=== PATIENT | male | born 1965 | race African-American/Black ===

== ENCOUNTER 2018-08-12 19:32 | Emergency (ER) | payer BC, OTHER ==
[2018-08-12] MEDS ORDERED: IPRATROPIUM/ALBUTEROL 0.5-2.5 MG/3 ML AMPUL NEB ONE (19:57)
[2018-08-12] MEDS ORDERED: METHYLPREDNISOLONE INJ 125 MG/2 ML SDV IV ONE (19:57)
[2018-08-12 20:07] LABS: ABSOLUTE BASOPHILS # (AUTO) 0.1 10^3/uL (0.0-0.2); ABSOLUTE EOSINOPHILS # (AUTO) 0.2 10^3/uL (0.0-0.6); ABSOLUTE LYMPHOCYTES (AUTO) 4.1 10^3/uL (0.5-4.7); ABSOLUTE MONOCYTES (AUTO) 1.5 10^3/uL (0.1-1.4); ABSOLUTE NEUT (AUTO) 9.3 10^3/uL (1.7-8.2); BASOPHILS % (AUTO) 0.9 % (0-2); EOSINOPHILS % (AUTO) 1.2 % (0-6); HEMATOCRIT 38.7 % (37.9-51.0); HEMOGLOBIN 12.9 g/dL (13.5-17.0); LYMPHOCYTES % (AUTO) 26.8 % (13-45); MEAN CORPUSCULAR HEMOGLOBIN 29.4 pg (27.0-33.4); MEAN CORPUSCULAR HGB CONC 33.3 g/dL (32.0-36.0); MEAN CORPUSCULAR VOLUME 88 fl (80-97); MONOCYTES % (AUTO) 9.7 % (3-13); PLATELET COUNT 368 10^3/uL (150-450); RED BLOOD COUNT 4.38 10^6/uL (4.35-5.55); RED CELL DISTRIBUTION WIDTH 14.9 % (11.5-14.0); SEGMENTED NEUTROPHILS % (AUTO) 61.4 % (42-78); TOTAL CELLS COUNTED % (AUTO) 100 %; WHITE BLOOD COUNT 15.2 10^3/uL (4.0-10.5)
[2018-08-12 20:13] LABS: ALANINE AMINOTRANSFERASE 22 U/L (21-72); ALBUMIN 4.3 g/dL (3.5-5.0); ALKALINE PHOSPHATASE 65 U/L (38-126); ANION GAP 12 (5-19); ASPARTATE AMINO TRANSFERASE 16 U/L (17-59); BILIRUBIN,DIRECT 0.3 mg/dL (0.0-0.4); BILIRUBIN,TOTAL 0.3 mg/dL (0.2-1.3); BLOOD UREA NITROGEN 18 mg/dL (7-20); CALCIUM 9.5 mg/dL (8.4-10.2); CARBON DIOXIDE 25 mmol/L (22-30); CHLORIDE 107 mmol/L (98-107); GLUCOSE 111 mg/dL (75-110); POTASSIUM 3.7 mmol/L (3.6-5.0); SODIUM 143.5 mmol/L (137-145); TOTAL PROTEIN 7.9 g/dL (6.3-8.2)
[2018-08-12 20:26] LABS: NT PRO BNP 115 pg/mL (5-900)
[2018-08-12 20:27] LABS: TROPONIN I < 0.012 ng/mL
--- NOTE | 2018-08-12 20:42 | RADIOLOGY REPORT (SQ) ---
EXAM DESCRIPTION: CHEST 2 VIEWS COMPLETED DATE/TIME: 08/12/2018 8:26 pm REASON FOR STUDY: Shortness of breath COMPARISON: None. EXAM PARAMETERS: NUMBER OF VIEWS: two views TECHNIQUE: Digital Frontal and Lateral radiographic views of the chest acquired. RADIATION DOSE: NA LIMITATIONS: none FINDINGS: LUNGS AND PLEURA: No opacities, masses or pneumothorax. No pleural effusion. MEDIASTINUM AND HILAR STRUCTURES: No masses or contour abnormalities. HEART AND VASCULAR STRUCTURES: Heart size is borderline. There is no pulmonary edema. BONES: No acute findings. HARDWARE: None in the chest. OTHER: No other significant finding. IMPRESSION: Borderline cardiomegaly without CHF. TECHNICAL DOCUMENTATION: JOB ID: [id number] [employer]- All Rights Reserved Reading location - IP/workstation name: [email or web address]
--- NOTE | 2018-08-12 22:11 | ER Document Report ---
ED Respiratory Problem - General Chief Complaint: Shortness Of Breath Stated Complaint: SHORTNESS OF BREATH Time Seen by Provider: 08/12/18 19:49 Mode of Arrival: Ambulatory Information source: Patient Notes: Patient is a 53-year-old black male comes emergency room complaining of increasing shortness of breath. Patient states she was seen approximately 2 weeks ago for similar incident and he is from [place] was told that he either has asthma or some type of an allergic problem and he was supposed to follow-up with a sewing machine adjuster this past week, he instead came down from [place] to work at the [email or web address]. He got overheated today became more short of breath. He attempted to use his inhaler without any relief. Denies any chest pain or shortness of breath. He also has a productive whitish cough. TRAVEL OUTSIDE OF THE [place] IN LAST 30 DAYS: No - HPI Patient complains to provider of: Cough, Short of breath. No: Asthma, Chest pain, CHF, COPD Onset: This afternoon Duration: Continuous Initiating Event: Other - Unknown Quality of pain: No pain Severity: Moderate Pain Level: 3 Context: denies: Hx asthma, Hx CHF, Malignancy, Recent cardiac event, Recent foreign travel, Recent long distance trvl, Recent immobilization Short of Breath: Moderate Chest pain/discomfort: Constant, Worse with deep breaths. denies: Heaviness, Left, Pain, Radiates to arm, Radiates to back, Radiates to jaw Cough: Productive Sputum amount: Small Sputum color: White Sputum consistency: Thin At home treatment: Bronchodilators Associated symptoms: Cough, Difficulty breathing, Short of breath, Wheezing Similar symptoms previously: Yes Recently seen / treated by doctor: Yes - Related Data Allergies/Adverse Reactions: No Known Allergies Allergy (Verified 08/12/18 19:32) Past Medical History - General Information source: Patient - Social History Smoking Status: Never Smoker Cigarette use (# per day): No Chew tobacco use (# tins/day): No Smoking Education Provided: No Frequency of alcohol use: Rare Drug Abuse: None Occupation: Contractor for the office work Lives with: Family Family History: None Patient has suicidal ideation: No Patient has homicidal ideation: No - Past Medical History Cardiac Medical History: Reports: Hx Hypertension Pulmonary Medical History: Reports: None EENT Medical History: Reports: None Neurological Medical History: Reports: None Endocrine Medical History: Reports: None Renal/ Medical History: Reports: None. Denies: Hx Peritoneal Dialysis Malignancy Medical History: Reports None GI Medical History: Reports: None Musculoskeletal Medical History: Reports None Skin Medical History: Reports None Psychiatric Medical History: Reports: None Traumatic Medical History: Reports: None Surgical Hx: Negative - Immunizations Immunizations up to date: Yes Hx Diphtheria, Pertussis, Tetanus Vaccination: No History of Influenza Vaccine for 09/2017 - 01/2018 Season: No Review of Systems - Review of Systems Constitutional: See HPI EENT: Nose congestion Cardiovascular: No symptoms reported Respiratory: Cough, Short of breath, Wheezing Gastrointestinal: No symptoms reported Genitourinary: See HPI Male Genitourinary: No symptoms reported Musculoskeletal: No symptoms reported Skin: No symptoms reported Hematologic/Lymphatic: No symptoms reported Neurological/Psychological: No symptoms reported -: Yes All other systems reviewed and negative Physical Exam - Vital signs Interpretation: Hypertensive - General Notes: Physical exam shows patient to be moderate discomfort secondary to shortness of breath. Slightly little diaphoretic. Patient is audible wheezing without a stethoscope. He is using no accessory muscles at this time for breathing. Lung sounds show he has bilateral breath sounds breath sounds are decreased throughout with moderate inspiratory expiratory wheeze heard in all lung chan. Cardiac shows she has a regular rate and rhythm without a murmur. - HEENT Head: Normocephalic, Atraumatic Eyes: Normal - Respiratory Respiratory status: No respiratory distress Chest status: Nontender. No: Pain on movement, Pain with cough, Pain with deep breathing, Wounds Breath sounds: Decreased air movement, Productive cough, Wheezing Chest palpation: Normal - Cardiovascular Heart sounds: Normal auscultation Murmur: Yes Friction rub: No Magali's crunch: No - Neurological Neuro grossly intact: Yes Cognition: Normal Orientation: AAOx4 Warren Coma Scale Eye Opening: Spontaneous Warren Coma Scale Verbal: Oriented Warren Coma Scale Motor: Obeys Commands Warren Coma Scale Total: 15 Speech: Normal - Skin Skin Temperature: Warm Skin Moisture: Diaphoretic Skin Color: Normal, Whitaker Skin Turgor: Elastic Course - Laboratory Result Diagrams: 08/12/18 19:46 08/12/18 19:46 Laboratory results interpreted by me: 08/12/18 08/12/18 19:46 19:46 WBC 15.2 H Hgb 12.9 L RDW 14.9 H Absolute Neutrophils 9.3 H Absolute Monocytes 1.5 H Glucose 111 H AST 16 L - Diagnostic Test Radiology reviewed: Image reviewed - No acute findings on the x-rays per radiologist - EKG Interpretation by Me EKG shows normal: Sinus rhythm Rate: Normal Rhythm: NSR - After patient received his nebulized treatment which was a DuoNeb along with 125 of Solu-Medrol IV and a little time he has improved substantially he feels is making jokes. He is asking for departure and I agree that this is manageable by him at home. I will write him for steroid pack and he will follow-up with his doctor when he is back to [place] which she is leaving for tomorrow. Discharge - Discharge Condition: Stable Disposition: HOME, SELF-CARE Instructions: Asthma ([facility]) Additional Instructions: Discharge is appropriate in this situation. Your situations when the can be managed outpatient at this time. As we discussed continue with your MDI/ inhaler every 4-6 hours. Start steroids tomorrow try to stay cool as possible during her activities. Overexertion may be causing some of the problem in the humidity. Should you have any concerns or problems return to ER immediately for recheck. Prescriptions: Methylprednisolone [Medrol Dosepack (4 mg/Tab) 21 Tab/Dosepak] 21 tab PO ASDIR PRN 6 Days #1 dspk PRN Reason: Forms: Elevated Blood Pressure
[2018-08-12 23:05] VITALS: BP 156/102
--- NOTE | 2018-08-12 23:13 | EKG REPORT ---
SEVERITY:- NORMAL ECG - SINUS RHYTHM : Confirmed by: Malinda Alex 12-Aug-2018 23:13:29
== END 2018-08-12 23:05 | disposition home or self-care (01) ==
LOC: ER 19:32
DX: J45.901 Unspecified asthma with (acute) exacerbation (principal); R06.02 Shortness of breath; R05 Cough; I10 Essential (primary) hypertension
CPT/HCPCS: 93005; 94640; 99285; 96374; 36415; 85025; 80053; 84484; 83880; 71046; 93010; J2930; J7620